=== PATIENT | female | born 1965 | race Caucasian/White ===

== ENCOUNTER 2017-11-20 11:10 | Emergency (ER) | payer MEDICAID ==
[2017-11-20] MEDS: DIPHENHYDRAMINE 50 MG INJ IM (11:47)
[2017-11-20] MEDS: KETOROLAC 30 MG INJ IM (11:47)
[2017-11-20 11:57] LABS: ADD MAN DIFF? NO
[2017-11-20 12:12] LABS: BASOPHILS % 0.7 % (0.0-2.0); EOSINOPHILS # 0.1 10^3/ul (0.0-0.5); EOSINOPHILS % 1.5 % (0.0-7.0); HEMATOCRIT 42.2 % (37.0-47.0); HEMOGLOBIN 14.2 g/dl (12.0-16.0); LYMPHOCYTES # 1.6 10^3/ul (0.8-2.9); LYMPHOCYTES % 26.8 % (15.0-51.0); MEAN CORPUSCULAR HGB CONC 33.6 g/dl (32.0-37.0); MEAN CORPUSCULAR VOLUME 89.2 fl (82.0-101.0); MEAN PLATELET VOLUME 11.7 fl (7.4-10.4); MONOCYTE # 0.4 10^3/ul (0.3-0.9); MONOCYTES % 6.4 % (0.0-11.0); NEUTROPHIL # 3.9 10^3/ul (1.6-7.5); NEUTROPHILS % 64.4 % (39.0-77.0); PLATELET COUNT 223 10^3/UL (140-415); RED BLOOD COUNT 4.73 10^6/ul (4.20-5.40); RED CELL DISTRIBUTION WIDTH 13.9 % (11.5-14.5)
== END 2017-11-20 15:20 | disposition home or self-care (01) ==
LOC: FTE 11:10
DX: G44.209 Tension-type headache, unspecified, not intractable (principal); E11.9 Type 2 diabetes mellitus without complications; I10 Essential (primary) hypertension; Z79.82 Long term (current) use of aspirin; Z86.2 Personal history of diseases of the blood and blood-forming organs and certain disorders involving the immune mechanism
CPT/HCPCS: 70450; 81025; 85025; 96372; 99285-25

== ENCOUNTER 2018-12-04 09:16 | Emergency (ER) | payer MEDICAID ==
[2018-12-04] MEDS: DIPHENHYDRAMINE 50 MG CAP PO (09:36)
[2018-12-04] MEDS: FAMOTIDINE 20 MG TAB PO (09:36)
== END 2018-12-04 10:02 | disposition home or self-care (01) ==
LOC: FTE 09:16
DX: L29.9 Pruritus, unspecified (principal); E11.9 Type 2 diabetes mellitus without complications; I10 Essential (primary) hypertension; Z79.82 Long term (current) use of aspirin
CPT/HCPCS: 99283; Z7502